=== PATIENT | female | born 1955 | race Caucasian/White ===

== ENCOUNTER 2016-09-13 09:29 | Emergency (ER) | payer MEDICARE, OTHER ==
[~2016-09-13] VITALS: Ht 167.6 cm; Wt 81.6 kg
[2016-09-13] MEDS ORDERED: ASPIRIN 81 MG CHEW (CHILDREN'S ASA) PO ONE (10:00)
--- NOTE | 2016-09-13 10:11 | Diagnostic Imaging Report ---
CHEST PA/LAT (2 VIEW) Indication: Chest pain Comparison: None available. Findings: No focal pneumonic consolidation, pleural effusion or pneumothorax. Focal linear atelectasis in the lingula. Normal heart size and pulmonary vasculature. Degenerative changes in the lower thoracic spine. Impression: No acute cardiopulmonary process. Dictated by: Dictated on workstation # [id number]
[2016-09-13 10:30] LABS: BASOPHILS % (AUTO) 0 % (0-10); EOSINOPHILS # (AUTO) 0.6 10^3/uL (0.0-0.3); EOSINOPHILS % (AUTO) 5 % (0-10); LYMPHOCYTES # (AUTO) 2.7 X 10^3 (1.0-4.0); LYMPHOCYTES % (AUTO) 23 % (12-44); MEAN CORPUSCULAR HEMOGLOBIN 31 PG (25-34); MEAN CORPUSCULAR HGB CONC 34 G/DL (32-36); MEAN CORPUSCULAR VOLUME 93 FL (80-99); MEAN PLATELET VOLUME 11.6 FL (7.4-10.4); MONOCYTES # (AUTO) 1.7 X 10^3 (0.0-1.0); MONOCYTES % (AUTO) 14 % (0-12); NEUTROPHILS # (AUTO) 6.9 X 10^3 (1.8-7.8); NEUTROPHILS % (AUTO) 58 % (42-75); PLATELET COUNT 238 10^3/uL (130-400); RED BLOOD COUNT 4.54 10^6/uL (4.35-5.85); RED CELL DISTRIBUTION WIDTH 12.9 % (10.0-14.5)
[2016-09-13 10:44] LABS: PROTHROMBIN TIME PATIENT 13.2 SEC (12.2-14.7)
[2016-09-13 10:52] LABS: ALANINE AMINOTRANSFERASE 31 U/L (0-55); ALBUMIN 4.1 G/DL (3.2-4.5); ANION GAP 10 MMOL/L (5-14); ASPARTATE AMINO TRANSFERASE 24 U/L (5-34); BILIRUBIN,TOTAL 0.5 MG/DL (0.1-1.0); BLOOD UREA NITROGEN 18 MG/DL (7-18); BUN/CREATININE RATIO 23; CALCIUM 9.7 MG/DL (8.5-10.1); CARBON DIOXIDE 23 MMOL/L (21-32); CHLORIDE 109 MMOL/L (98-107); GFR ESTIMATED > 60; GLUCOSE 83 MG/DL (70-105); MAGNESIUM 2.1 MG/DL (1.8-2.4); POTASSIUM 4.2 MMOL/L (3.6-5.0); SODIUM 142 MMOL/L (135-145); TOTAL PROTEIN 6.8 G/DL (6.4-8.2)
[2016-09-13 10:58] LABS: MYOGLOBIN SERUM 38.8 NG/ML (10.0-92.0)
--- NOTE | 2016-09-13 11:55 | ED Chest Pain ---
General Chief Complaint: Chest Pain Stated Complaint: CP Nursing Triage Note: Pt has had 6 short spells of chest pain for the last hour. Pt was sitting in a vehicle while her was driving to when she noticed the pain. Denies pain currently. Monitor shows SR without ectopy. Vital signs stable. Nursing Sepsis Screen: No Definite Risk Source: patient Exam Limitations: no limitations (ALLEN ALBARRAN MD) History of Present Illness Time seen by provider: 08:37 Initial Comments This 60-year-old woman presents to the emergency room with complaints of central left chest pain beneath the left breast that was sharp and sudden in onset. Pain is rated as 9/10. She had several brief episodes of this sharp chest pain. She was resting in the car on the way to [place] when the pain occurred. She denies any chest pain at present. She has no known history of coronary artery disease but has had a history of arrhythmias. She also has history of asthma, chronic bronchitis and acid reflux. She has not been taking omeprazole as she should recently. Pain started about one hour prior to arrival in the last pain was about 20 minutes ago. She has had a mild cough for the past few days but denies fever. She also reports having a tender spot near the epigastrium a few days ago. Her primary care provider is Dr. Ceja in [place]. Her traditional chinese herbalist is Dr. Long. (ALLEN ALBARRAN MD) Allergies and Home Medications Allergies Coded Allergies: No Known Drug Allergies (Unverified , 09/13/16) Home Medications Azithromycin 250 Mg Tablet, 250 MG PO UD, #6 TAKE 2 TABLETS ON DAY ONE THEN TAKE 1 TABLET DAILY FOR FOUR MORE DAYS Prescribed by: ALLEN STATON on 09/13/16 1223 Review of Systems Constitutional: no symptoms reported EENTM: No Symptoms Reported Respiratory: See HPI Cardiovascular: See HPI Gastrointestinal: See HPI Genitourinary: No Symptoms Reported Musculoskeletal: no symptoms reported Skin: no symptoms reported Psychiatric/Neurological: No Symptoms Reported Endocrine: No Symptoms Reported (ALLEN ALBARRAN MD) Past Levlsoe-Acjiip-Hlobpx Hx Patient Social History Recent Foreign Travel: No Contact w/Someone Who Travel: No Recent Infectious Disease Expo: No (ALLEN ALBARRAN MD) Surgeries HX Surgeries: Yes Surgeries: Bladder Surgery, Hysterectomy (ALLEN ALBARRAN MD) Respiratory Hx Respiratory Disorders: Yes Respiratory Disorders: Asthma, Chronic Bronchitis, Sleep Apnea (ALLEN ALBARRAN MD) Cardiovascular Hx Cardiac Disorders: Yes (arrhythmia) Cardiac Disorders: Hypertension (ALLEN ALBARRAN MD) Neurological Hx Neurological Disorders: No (ALLEN ALBARRAN MD) Reproductive System : No (ALLEN ALBARRAN MD) Genitourinary Hx Genitourinary Disorders: No (ALLEN ALBARRAN MD) Gastrointestinal Hx Gastrointestinal Disorders: Yes Gastrointestinal Disorders: Gastroesophageal Reflux (ALLEN ALBARRAN MD) Endocrine Hx Endocrine Disorders: Yes Endocrine Disorders: Hypothyroidsim (history of Adiel's thyroiditis) (ALLEN ALBARRAN MD) Physical Exam Vital Signs Vital Sign - Last 12Hours 09/13/16 09:30 Temp 97.9 Pulse 60 Resp 16 B/P (MAP) 116/76 O2 Delivery Room Air (LILLIAN LAMAS APRN) Vital Signs Capillary Refill : Less Than 3 Seconds (ALLEN ALBARRAN MD) General Appearance: No Apparent Distress, WD/WN HEENT: PERRL/EOMI, Normal ENT Inspection, Pharynx Normal Neck: Normal Inspection Respiratory: Chest Non Tender, Lungs Clear, Normal Breath Sounds, No Accessory Muscle Use, No Respiratory Distress Cardiovascular: Regular Rate, Rhythm, No Edema, No Murmur, Normal Peripheral Pulses Gastrointestinal: Normal Bowel Sounds, Non Tender, Soft Extremity: Normal Inspection, Non Tender, No Calf Tenderness, No Pedal Edema, Other (negative Simone) Neurologic/Psychiatric: Alert, Oriented x3, No Motor/Sensory Deficits, Normal Mood/Affect, analysis specialist II-XII Norm as Tested Skin: Normal Color, Warm/Dry (ALLEN ALBARRAN MD) Progress/Results/Core Measures Results/Orders Lab Results Laboratory Tests Test 09/13/16 10:25 09/13/16 14:23 Range/Units White Blood Count 12.0 H 4.3-11.0 10^3/uL Red Blood Count 4.54 4.35-5.85 10^6/uL Hemoglobin 14.1 11.5-16.0 G/DL Hematocrit 42 35-52 % Mean Corpuscular Volume 93 80-99 FL Mean Corpuscular Hemoglobin 31 25-34 PG Mean Corpuscular Hemoglobin Concent 34 32-36 G/DL Red Cell Distribution Width 12.9 10.0-14.5 % Platelet Count 238 130-400 10^3/uL Mean Platelet Volume 11.6 H 7.4-10.4 FL Neutrophils (%) (Auto) 58 42-75 % Lymphocytes (%) (Auto) 23 12-44 % Monocytes (%) (Auto) 14 H 0-12 % Eosinophils (%) (Auto) 5 0-10 % Basophils (%) (Auto) 0 0-10 % Neutrophils # (Auto) 6.9 1.8-7.8 X 10^3 Lymphocytes # (Auto) 2.7 1.0-4.0 X 10^3 Monocytes # (Auto) 1.7 H 0.0-1.0 X 10^3 Eosinophils # (Auto) 0.6 H 0.0-0.3 10^3/uL Basophils # (Auto) 0.0 0.0-0.1 10^3/uL Prothrombin Time 13.2 12.2-14.7 SEC INR Comment 1.0 0.8-1.4 Activated Partial Thromboplast Time 32 24-35 SEC Sodium Level 142 135-145 MMOL/L Potassium Level 4.2 3.6-5.0 MMOL/L Chloride Level 109 H 98-107 MMOL/L Carbon Dioxide Level 23 21-32 MMOL/L Anion Gap 10 5-14 MMOL/L Blood Urea Nitrogen 18 7-18 MG/DL Creatinine 0.80 0.60-1.30 MG/DL Estimat Glomerular Filtration Rate > 60 BUN/Creatinine Ratio 23 Glucose Level 83 70-105 MG/DL Calcium Level 9.7 8.5-10.1 MG/DL Magnesium Level 2.1 1.8-2.4 MG/DL Total Bilirubin 0.5 0.1-1.0 MG/DL Aspartate Amino Transf (AST/SGOT) 24 5-34 U/L Alanine Aminotransferase (ALT/SGPT) 31 0-55 U/L Alkaline Phosphatase 39 L 40-136 U/L Myoglobin 38.8 10.0-92.0 NG/ML Troponin I < 0.30 < 0.30 <0.30 NG/ML Total Protein 6.8 6.4-8.2 G/DL Albumin 4.1 3.2-4.5 G/DL (LILLIAN LAMAS APRN) Medications Given in ED Current Medications Medications Dose Ordered Sig/Shelley Route Start Time Stop Time Status Last Admin Dose Admin Aspirin 324 mg ONCE ONCE PO 09/13/16 10:00 09/13/16 10:01 DC 09/13/16 10:14 324 MG (LILLIAN LAMAS APRN) Vital Signs/I&O Vital Sign - Last 12Hours 09/13/16 09/13/16 09:30 10:14 Temp 97.9 97.9 Pulse 60 Resp 16 B/P (MAP) 116/76 O2 Delivery Room Air (LILLIAN LAMAS APRN) Blood Pressure Mean: 89 Progress Note : Time: 12:08 Progress Note Cardiac workup was unremarkable. Patient has had no further chest pain. She does have a mild leukocytosis and atelectasis on her chest x-ray. These findings in combination with her recent cough led this provider to offer azithromycin. Patient would like to take the azithromycin as a precaution as early pneumonia cannot be completely ruled out. Patient would like to take the azithromycin. (ALLEN ALBARRAN MD) ECG Initial ECG Impression Date: Sep 13, 2016 Initial ECG Impression Time: 09:34 Initial ECG Rate: 51 Initial ECG Rhythm: Normal Sinus Initial ECG Intervals: Normal Initial ECG Impression: Normal Comment Normal sinus rhythm with no ST elevation or depression. No abnormal intervals or axis deviation. (ALLEN ALBARRAN MD) Diagnostic Imaging Diagonstic Imaging: Xray Plain Films/CT/US/NM/MRI: chest Comments Chest x-ray viewed by me and report reviewed. See report below: NAME: DAMEON DOLL [facility] REC#: [id number] PT STATUS: REG ER : 1955 PHYSICIAN: ALLEN ALBARRAN MD ADMIT DATE: 09/13/16/ER Signed Date of Exam:09/13/16 CHEST PA/LAT (2 VIEW) Indication: Chest pain Comparison: None available. Findings: No focal pneumonic consolidation, pleural effusion or pneumothorax. Focal linear atelectasis in the lingula. Normal heart size and pulmonary vasculature. Degenerative changes in the lower thoracic spine. Impression: No acute cardiopulmonary process. Dictated by: Dictated on workstation # [id number] Dict: 09/13/16 1005 Trans: 09/13/16 1040 [facility] [id number] Interpreted by: HOLLY AWLDRON MD Electronically signed by: HOLLY WALDRON MD 09/13/16 1040 (ALLEN ALBARRAN MD) Departure Communication Progress Notes 1505-still asymptomatic, laughing smiling and without any chest pain. Repeat troponin is negative. Discussed the atelectasis lingula with the patient and the possibility of this pain being pleuritic in nature. She's been given a prescription for azithromycin and tends to fill this today. She will return for any worsening or other concerns (LILLIAN LAMAS APRN) Impression Impression: Primary Impression: Chest pain Qualified Codes: R07.9 - Chest pain, unspecified Additional Impression: Leukocytosis Qualified Codes: D72.829 - Elevated white blood cell count, unspecified Disposition: 01 HOME, SELF-CARE Condition: Improved Departure-Patient Inst. Referrals: VASILIY PHAM MD (PCP/Family) Primary Care Physician Patient Instructions: Chest Pain (DC) Add. Discharge Instructions: Complete your antibiotics as prescribed. Please follow-up with your primary care provider and traditional chinese herbalist as soon as possible. Return to care if symptoms worsen. Restart omeprazole as previously directed. All discharge instructions reviewed with patient and/or family. Voiced understanding. Scripts Azithromycin (Azithromycin) 250 Mg Tablet 250 MG PO UD, #6 TAB TAKE 2 TABLETS ON DAY ONE THEN TAKE 1 TABLET DAILY FOR FOUR MORE DAYS Prov: ALLEN ALBARRAN MD 09/13/16 ALLEN ALBARRAN MD Sep 13, 2016 11:54 LILLIAN LAMAS APRN Sep 13, 2016 15:06
[2016-09-13] MEDS ORDERED: AZIT250T5 PO ×2 (12:22→12:23)
[2016-09-13 15:20] VITALS: BP 115/81
== END 2016-09-13 15:20 | disposition home or self-care (01) ==
LOC: ER 09:31
DX: R07.9 Chest pain, unspecified (principal); D72.829 Elevated white blood cell count, unspecified
CPT/HCPCS: 36415; 71020; 80053; 83735; 83874; 84484; 85025; 85610; 85730; 93005; 93041